=== PATIENT | female | born 2000 | race Caucasian/White ===

== ENCOUNTER → 2024-10-29 | Outpatient (REF) | payer OTHER ==
[2024-10-29 14:30] LABS: BASO % 0.3 % (0.0-1.0); EOS # 0.1 10^3/uL (0.0-0.5); EOS % 1.9 % (0.0-3.0); HEMATOCRIT 36.4 % (36.0-47.0); HEMOGLOBIN 11.7 g/dl (12.0-15.5); LYMPH # 1.5 10^3/uL (1.5-5.0); LYMPH % 20.8 % (24.0-44.0); MEAN CORPUSCULAR HEMOGLOBIN 24.2 pg (27.0-33.0); MEAN CORPUSCULAR HGB CONC 32.1 g/dl (32.0-36.5); MEAN CORPUSCULAR VOLUME 75.2 fl (80.0-96.0); MONO # 0.6 10^3/uL (0.0-0.8); MONO % 7.5 % (2.0-8.0); NEUTROPHILS % 69.1 % (36.0-66.0); PLATELET COUNT, AUTOMATED 312 10^3/uL (150-450); RED BLOOD COUNT 4.84 10^6/uL (4.00-5.40); WHITE BLOOD COUNT 7.3 10^3/uL (4.0-10.0)
[2024-10-29 14:42] LABS: HCG, SERUM QUANTITATIVE < 2.6 MIU/ML (<4.2)
[2024-10-29 14:45] LABS: FREE T4 0.99 NG/DL (0.89-1.76)
[2024-10-29 14:46] LABS: FERRITIN 5.9 NG/ML (7.3-270.7); THYROID STIMULATING HORMONE 5.067 uIU/ML (0.55-4.78); VITAMIN B12 LEVEL 504 PG/ML (211-911)
== END ==
LOC: M SFHCPLAZ 11:25
PROVIDERS: ATTEND Internal Medicine Hematology
DX: I27.82 Chronic pulmonary embolism (principal); D50.9 Iron deficiency anemia, unspecified

== ENCOUNTER → 2024-10-30 | Outpatient (CLI) | payer OTHER ==
[2024-11-04 07:22] LABS: Act Prt C Resist w/FV Defic 1.6 ratio (>=2.1)
[2024-11-05 10:07] LABS: ANTITHROMBIN III ACTIVITY 109 % normal (80-135); Prt C Activity(Chromogenic) 148 % normal (70-180)
[2024-11-06 13:56] LABS: PROTEIN S AG TOTAL 107 % normal (70-140); Protein S Antigen, Free 100 % normal (50-147)
[2024-11-07 01:19] LABS: APTT LUPUS 40 sec (<=40); DRVVT SCREEN SECONDS 54 sec (<=45); Factor VIII ACTIVITY,CLOTTING 125 % normal (50-180)
== END ==
LOC: M PLALAB 11:07
PROVIDERS: ATTEND Internal Medicine Hematology
DX: I27.82 Chronic pulmonary embolism (principal)

== ENCOUNTER 2024-12-09 09:22 | Outpatient (CLI) | payer OTHER ==
[~2024-12-09] VITALS: Ht 165.1 cm; Wt 95.5 kg
[~2024-12-09 09:22] MED LIST: ALBUTEROL SULFATE 2.5MG/0.5ML INH NEB SOLN INH PRN; EPINEPHrine INJ 1 MG/ML 1ML AMP IM PRN; diphenhydrAMINE 50MG/ML VIAL IV PRN; methylPREDNISolone 125MG 2ML VIAL IV PRN
[2024-12-09 09:40] VITALS: BP 96/57; O2SAT 99
[2024-12-09] MEDS: IRON SUCROSE 300 MG in NS 250 ML OVER 90 MIN. IV ONE (09:50)
[2024-12-09 11:40] VITALS: BP 114/64; O2SAT 99
== END 2024-12-09 11:55 ==
LOC: M INFU 09:22
PROVIDERS: ATTEND Internal Medicine Hematology
DX: D50.9 Iron deficiency anemia, unspecified (principal)
CPT/HCPCS: 96365; 96366; J1756

== ENCOUNTER 2024-12-16 11:00 | Outpatient (CLI) | payer OTHER ==
[~2024-12-16] VITALS: Ht 195.6 cm; Wt 95.5 kg
[2024-12-16] MEDS: IRON SUCROSE 300 MG in NS 250 ML OVER 90 MIN. IV ONE (11:51)
[2024-12-16 12:13] VITALS: BP 135/70; O2SAT 98
[2024-12-16 13:31] VITALS: BP 121/72; O2SAT 97
== END 2024-12-16 13:30 ==
LOC: M INFU 11:00
PROVIDERS: ATTEND Internal Medicine Hematology
DX: D50.9 Iron deficiency anemia, unspecified (principal)
CPT/HCPCS: 96365; 96366; J1756

== ENCOUNTER → 2024-12-26 | Outpatient (CLI) | payer OTHER | LOC: M CARPUL 08:39 | PROVIDERS: ATTEND Internal Medicine Hematology | DX: I27.82 Chronic pulmonary embolism (principal) ==

== ENCOUNTER 2025-07-05 18:39 | Emergency (ER) | payer OTHER ==
[~2025-07-05] VITALS: Ht 165.1 cm; Wt 93.4 kg
[~2025-07-05 18:39] MED LIST changes: -ALBUTEROL SULFATE 2.5MG/0.5ML INH NEB SOLN INH PRN; +ELIQ5TAB PO; -EPINEPHrine INJ 1 MG/ML 1ML AMP IM PRN; -diphenhydrAMINE 50MG/ML VIAL IV PRN; -methylPREDNISolone 125MG 2ML VIAL IV PRN
[2025-07-05] MEDS ORDERED: APAP325T4 PO (18:47)
[2025-07-05] MEDS: NS (Normal Saline) 0.9% 1,000 ML IV ONE (21:09)
[2025-07-05] MEDS: ACETAMINOPHEN *IV* 1,000 MG in IV 1 EA IV ONE (21:09)
[2025-07-05] MEDS: diphenhydrAMINE 50 MG/ML VIAL IV ONE (21:09)
[2025-07-05] MEDS: dexAMETHasone 4 MG/ML 1 ML VIAL IV ONE (21:09)
[2025-07-05 21:13] LABS: BASO # 0.0 10^3/uL (0.0-0.2); BASO % 0.1 % (0.0-1.0); EOS # 0.1 10^3/uL (0.0-0.5); EOS % 0.5 % (0.0-3.0); LYMPH # 1.6 10^3/uL (1.5-5.0); LYMPH % 17.0 % (24.0-44.0); MONO # 0.5 10^3/uL (0.0-0.8); MONO % 5.5 % (2.0-8.0); NEUTROPHILS # 7.0 10^3/uL (1.5-8.5); NEUTROPHILS % 76.6 % (36.0-66.0); PLATELET COUNT, AUTOMATED 219 10^3/uL (150-450)
[2025-07-05 21:26] LABS: INR 1.18
[2025-07-05 21:44] LABS: CALCIUM LEVEL 9.3 MG/DL (8.5-10.1); CARBON DIOXIDE LEVEL 27 MMOL/L (20-31); CHLORIDE LEVEL 104 MMOL/L (98-107); CREATININE FOR GFR 0.60 MG/DL (0.55-1.30); GLOMERULAR FILTRATION RATE > 90.0 (>60); POTASSIUM SERUM 4.2 MMOL/L (3.5-5.1); SODIUM LEVEL 142 MMOL/L (136-145)
[2025-07-06] MEDS ORDERED: FIOR1CAP PO (00:57)
[2025-07-06] MEDS ORDERED: MECL-209 PO (00:57)
[2025-07-06] MEDS ORDERED: ONDA-282 PO (00:57)
[2025-07-06 01:14] VITALS: BP 105/74; TEMP 97.6; O2SAT 98
== END 2025-07-06 01:15 | disposition home or self-care (01) ==
LOC: M ED 18:39
DX: R51.9 Headache, unspecified (principal); F07.81 Postconcussional syndrome; D50.9 Iron deficiency anemia, unspecified; Z86.711 Personal history of pulmonary embolism; Z79.01 Long term (current) use of anticoagulants
CPT/HCPCS: 70450; 80048; 85025; 85610; 85730; 96374; 96375; 99284; J0131; J1100; J1200; J2765